=== PATIENT | male | born 1995 | race Two or more races ===

== ENCOUNTER 2017-03-23 23:22 | Inpatient (IN) | payer OTHER ==
[~2017-03-23] VITALS: Ht 172.7 cm; Wt 68.0 kg
[2017-03-23] MEDS ORDERED: iohexol 350MG/ML 100ml bottle IV ONE (23:26)
[2017-03-23] MEDS ORDERED: normal saline 1000ml 1,000 ML IV ONE (23:28)
[2017-03-23] MEDS ORDERED: TETanus/Pertussis (Acell)/Diphther VAC/PF (Tdap-Adult) 0.5ml syringe IMVAC ONE (23:30)
[2017-03-23] MEDS ORDERED: ondansetron/PF 4mg/2ml inj IV ONE ×2 (23:40)
[2017-03-23 23:41] LABS: BASOPHILS % (AUTO) 0.6 % (0-1); EOSINOPHILS % (AUTO) 0.6 % (0-6); HEMATOCRIT 43.3 % (42.0-52.0); HEMOGLOBIN 14.8 g/dl (14.0-17.9); LYMPHOCYTES # (AUTO) 3.3 X10'3 (1.1-4.8); LYMPHOCYTES % (AUTO) 45.2 % (21-51); MEAN CORPUSCULAR HEMOGLOBIN 30.5 PG (27.0-31.0); MEAN CORPUSCULAR HGB CONC 34.2 % (33.0-36.5); MEAN CORPUSCULAR VOLUME 89.1 FL (78-98); MEAN PLATELET VOLUME 8.2 FL (7.4-10.4); MONOCYTES # (AUTO) 0.5 X10'3 (0-0.9); MONOCYTES % (AUTO) 7.4 % (2-12); NEUTROPHILS # (AUTO) 3.4 X10'3 (1.8-7.7); NEUTROPHILS % (AUTO) 46.2 % (42-75); PLATELET COUNT 212 X10'3 (140-440); RED BLOOD COUNT 4.86 X10'6 (4.70-6.10); RED CELL DISTRIBUTION WIDTH 12.5 % (11.5-14.5); WHITE BLOOD COUNT 7.3 X10'3 (4.5-11.0)
[2017-03-23 23:53] LABS: INR 1.1 INR; PARTIAL THROMBOPLASTIN TIME 22 SECONDS (22-32); PROTHROMBIN TIME 11.5 SECONDS (9.0-12.0)
[2017-03-23 23:56] LABS: ALANINE AMINOTRANSFERASE 22 U/L (12-78); ALBUMIN 4.8 G/DL (3.4-5.0); ALBUMIN/GLOBULIN RATIO 1.5 (1.1-1.5); ALKALINE PHOSPHATASE 52 IU/L (46-116); ANION GAP 12 (8-16); ASPARTATE AMINO TRANSFERASE 16 U/L (10-37); BILIRUBIN,TOTAL 0.6 MG/DL (0.1-1.0); BLOOD UREA NITROGEN 16 MG/DL (7-18); BUN/CREATININE RATIO 14.5 (5.4-32.0); CALCIUM 9.1 MG/DL (8.5-10.1); CHLORIDE 103 MMOL/L (99-107); ETHANOL 0.026 GM/DL (0.0-0.010); GLUCOSE 116 MG/DL (70-104); SODIUM 143 MMOL/L (135-145); TOTAL CARBON DIOXIDE 27.9 MMOL/L (24-32); eGFR 80 ML/MIN
[2017-03-24] VITALS (17 sets, daily range): BP systolic 102–138; BP diastolic 59–86
[2017-03-24 00:01] LABS: POTASSIUM 2.9 MMOL/L (3.5-5.1)
[2017-03-24 00:08] LABS: ACETAMINOPHEN < 2.0 UG/ML (10-30)
[2017-03-24 00:11] LABS: URINE AMPHETAMINE SCREEN NEGATIVE (Neg); URINE BARBITUATE SCREEN NEGATIVE (Neg); URINE BENZODIAZEPINES SCREEN NEGATIVE (Neg); URINE CANNABINOID SCREEN NEGATIVE (Neg); URINE COCAINE SCREEN NEGATIVE (Neg); URINE METHADONE SCREEN NEGATIVE (Neg); URINE OPIATE SCREEN NEGATIVE (Neg); URINE PHENCYCLIDINE SCREEN NEGATIVE (Neg)
[2017-03-24] MEDS ORDERED: ceFOXitin 2 GM ADDvantage bag 100 ML IV ONE (00:35)
[2017-03-24] MEDS ORDERED: clindamycin phosphate 150mg/ml inj. ONE (00:39)
[2017-03-24] MEDS ORDERED: gentamicin 40 MG/1 ML inj ONE (00:39)
[2017-03-24] MEDS ORDERED: sevoflurane 250ml liquid IH ONE (01:06)
[2017-03-24] MEDS ORDERED: fentaNYL/PF 50MCG/1 ML 2ML syringe ONE (01:08)
[2017-03-24] MEDS ORDERED: midazolam 2 mg/2 ml injection ONE (01:08)
[2017-03-24] MEDS ORDERED: propofol inj 20 ML IV ONE (01:09)
[2017-03-24] MEDS ORDERED: rocuronium 10mg/ml inj IV ONE (01:09)
[2017-03-24] MEDS ORDERED: ceFOXitin 1000 MG inj ONE ×2 (01:32)
[2017-03-24] MEDS ORDERED: ringers solution, lacted 1,000 ML IV SCH (01:48)
[2017-03-24] MEDS ORDERED: ondansetron/PF 4mg/2ml inj IV PRN (01:50)
[2017-03-24] MEDS ORDERED: proCHLORperazine 10 MG/2 ml inj IV PRN (01:50)
[2017-03-24] MEDS ORDERED: meperidine/PF 50mg/ml syringe IV PRN ×3 (01:50)
[2017-03-24] MEDS ORDERED: morphine 2 MG/ML inj. syringe IV PRN ×2 (01:50)
[2017-03-24] MEDS ORDERED: glycopyrrolate 0.2mg/ml inj ONE (02:04)
[2017-03-24] MEDS ORDERED: neostigmine methylsulfate 1 MG/ML 10ml vial ONE (02:04)
[2017-03-24] MEDS ORDERED: potassium Cl 40MEQ/NS 500ml 500 ML IV PRN ×2 (03:45)
[2017-03-24] MEDS ORDERED: HYDROmorphone 1 mg/ml syringe IV PRN (03:45)
[2017-03-24] MEDS ORDERED: potassium Cl 20 mEq SR tablet PO PRN ×2 (03:45)
[2017-03-24] MEDS: HYDROmorphone inj. 0.5 MG/0.5 ML DISP.SYRIN IV PRN ×4 (04:14→19:01)
[2017-03-24] MEDS ORDERED: potassium Cl 40MEQ/NS 500ml 1,000 ML IV ONE (04:24)
[2017-03-24] MEDS: ceFOXitin 1 GM ADDVANTAGE BAG 1,000 MG in normal saline 100ml IV soln 100 ML IV SCH ×2 (07:46→15:08)
[2017-03-24] MEDS: lactobacillus rhamnosus 10,000 MMU CELLS/CAPSULE PO SCH ×2 (07:46→17:28)
[2017-03-24] MEDS: potassium CL 20mEq in D5-1/2NS 1,000 ML IV SCH ×3 (10:10→21:48)
[2017-03-24] MEDS ORDERED: NO HOME MEDS (11:07)
[2017-03-24] MEDS: ondansetron/PF 4mg/2ml inj IV PRN (12:46)
[2017-03-25] VITALS: BP 116/68
[2017-03-25] MEDS: potassium CL 20mEq in D5-1/2NS 1,000 ML IV SCH ×4 (02:10→20:19)
[2017-03-25] MEDS: HYDROmorphone inj. 0.5 MG/0.5 ML DISP.SYRIN IV PRN ×2 (02:31→23:38)
[2017-03-25 04:49] LABS: BASOPHILS % (AUTO) 0.3 % (0-1); EOSINOPHILS % (AUTO) 0.2 % (0-6); HEMATOCRIT 37.5 % (42.0-52.0); HEMOGLOBIN 13.2 g/dl (14.0-17.9); LYMPHOCYTES # (AUTO) 1.2 X10'3 (1.1-4.8); LYMPHOCYTES % (AUTO) 11.2 % (21-51); MEAN CORPUSCULAR HEMOGLOBIN 30.5 PG (27.0-31.0); MEAN CORPUSCULAR HGB CONC 35.2 % (33.0-36.5); MEAN CORPUSCULAR VOLUME 86.8 FL (78-98); MEAN PLATELET VOLUME 8.3 FL (7.4-10.4); MONOCYTES % (AUTO) 9.7 % (2-12); NEUTROPHILS # (AUTO) 8.3 X10'3 (1.8-7.7); NEUTROPHILS % (AUTO) 78.6 % (42-75); PLATELET COUNT 165 X10'3 (140-440); RED BLOOD COUNT 4.31 X10'6 (4.70-6.10); RED CELL DISTRIBUTION WIDTH 13.1 % (11.5-14.5); WHITE BLOOD COUNT 10.6 X10'3 (4.5-11.0)
[2017-03-25 05:23] LABS: ALBUMIN 3.7 G/DL (3.4-5.0); ANION GAP 8 (8-16); BLOOD UREA NITROGEN 7 MG/DL (7-18); BUN/CREATININE RATIO 8.2 (5.4-32.0); CALCIUM 8.7 MG/DL (8.5-10.1); CHLORIDE 103 MMOL/L (99-107); CREATININE 0.85 MG/DL (0.60-1.10); GLUCOSE 129 MG/DL (70-104); MAGNESIUM 1.8 MG/DL (1.5-2.4); POTASSIUM 3.9 MMOL/L (3.5-5.1); SODIUM 139 MMOL/L (135-145); eGFR > 90 ML/MIN
[2017-03-25 07:51] VITALS: BP 119/73
[2017-03-25] MEDS: lactobacillus rhamnosus 10,000 MMU CELLS/CAPSULE PO SCH ×2 (08:12→18:41)
[2017-03-25 11:00] VITALS: BP 112/71
[2017-03-25] MEDS: ondansetron/PF 4mg/2ml inj IV PRN (16:51)
[2017-03-25 18:00] VITALS: BP 128/86
[2017-03-25] MEDS: metoclopramide 10mg tablet PO SCH (20:18)
[2017-03-25] MEDS: magnesium hydroxide 30ml (MOM) UD suspension PO SCH (20:18)
[2017-03-26] VITALS: BP 117/69
[2017-03-26] MEDS: metoclopramide 10mg tablet PO SCH ×4 (02:00→19:13)
[2017-03-26] MEDS: potassium CL 20mEq in D5-1/2NS 1,000 ML IV SCH ×3 (05:11→22:01)
[2017-03-26 05:30] LABS: BASOPHILS % (AUTO) 0.4 % (0-1); EOSINOPHILS # (AUTO) 0.1 X10'3 (0-0.9); EOSINOPHILS % (AUTO) 0.9 % (0-6); HEMATOCRIT 39.9 % (42.0-52.0); HEMOGLOBIN 14.1 g/dl (14.0-17.9); LYMPHOCYTES # (AUTO) 1.1 X10'3 (1.1-4.8); LYMPHOCYTES % (AUTO) 15.9 % (21-51); MEAN CORPUSCULAR HEMOGLOBIN 30.9 PG (27.0-31.0); MEAN CORPUSCULAR HGB CONC 35.4 % (33.0-36.5); MEAN CORPUSCULAR VOLUME 87.3 FL (78-98); MEAN PLATELET VOLUME 8.4 FL (7.4-10.4); MONOCYTES # (AUTO) 1.2 X10'3 (0-0.9); MONOCYTES % (AUTO) 17.4 % (2-12); NEUTROPHILS # (AUTO) 4.7 X10'3 (1.8-7.7); NEUTROPHILS % (AUTO) 65.4 % (42-75); PLATELET COUNT 169 X10'3 (140-440); RED BLOOD COUNT 4.56 X10'6 (4.70-6.10); RED CELL DISTRIBUTION WIDTH 12.8 % (11.5-14.5); WHITE BLOOD COUNT 7.2 X10'3 (4.5-11.0)
[2017-03-26 05:50] LABS: ALBUMIN 3.6 G/DL (3.4-5.0); ANION GAP 8 (8-16); BLOOD UREA NITROGEN 10 MG/DL (7-18); BUN/CREATININE RATIO 10.5 (5.4-32.0); CALCIUM 9.2 MG/DL (8.5-10.1); CHLORIDE 102 MMOL/L (99-107); CREATININE 0.95 MG/DL (0.60-1.10); GLUCOSE 130 MG/DL (70-104); MAGNESIUM 1.9 MG/DL (1.5-2.4); POTASSIUM 4.3 MMOL/L (3.5-5.1); SODIUM 140 MMOL/L (135-145); eGFR > 90 ML/MIN
[2017-03-26 07:08] VITALS: BP 119/77
[2017-03-26] MEDS: lactobacillus rhamnosus 10,000 MMU CELLS/CAPSULE PO SCH ×2 (08:12→18:18)
[2017-03-26] MEDS: magnesium hydroxide 30ml (MOM) UD suspension PO SCH ×2 (08:12→19:13)
[2017-03-26] MEDS: ondansetron/PF 4mg/2ml inj IV PRN (10:48)
[2017-03-26] MEDS: HYDROmorphone inj. 0.5 MG/0.5 ML DISP.SYRIN IV PRN (10:49)
[2017-03-26 18:00] VITALS: BP 110/64
[2017-03-27] VITALS: BP 128/80
[2017-03-27] MEDS: metoclopramide 10mg tablet PO SCH ×3 (01:38→13:31)
[2017-03-27 05:02] LABS: BASOPHILS % (AUTO) 0.5 % (0-1); EOSINOPHILS # (AUTO) 0.3 X10'3 (0-0.9); EOSINOPHILS % (AUTO) 4.8 % (0-6); HEMATOCRIT 36.2 % (42.0-52.0); HEMOGLOBIN 12.6 g/dl (14.0-17.9); LYMPHOCYTES % (AUTO) 35.5 % (21-51); MEAN CORPUSCULAR HEMOGLOBIN 30.7 PG (27.0-31.0); MEAN CORPUSCULAR HGB CONC 34.9 % (33.0-36.5); MEAN CORPUSCULAR VOLUME 88.1 FL (78-98); MEAN PLATELET VOLUME 8.4 FL (7.4-10.4); MONOCYTES # (AUTO) 0.8 X10'3 (0-0.9); MONOCYTES % (AUTO) 14.6 % (2-12); NEUTROPHILS # (AUTO) 2.5 X10'3 (1.8-7.7); NEUTROPHILS % (AUTO) 44.6 % (42-75); PLATELET COUNT 159 X10'3 (140-440); RED BLOOD COUNT 4.11 X10'6 (4.70-6.10); RED CELL DISTRIBUTION WIDTH 12.9 % (11.5-14.5); WHITE BLOOD COUNT 5.5 X10'3 (4.5-11.0)
[2017-03-27 05:23] LABS: ALBUMIN 3.3 G/DL (3.4-5.0); ANION GAP 7 (8-16); BLOOD UREA NITROGEN 4 MG/DL (7-18); BUN/CREATININE RATIO 4.8 (5.4-32.0); CALCIUM 8.9 MG/DL (8.5-10.1); CHLORIDE 104 MMOL/L (99-107); CREATININE 0.83 MG/DL (0.60-1.10); GLUCOSE 115 MG/DL (70-104); MAGNESIUM 1.8 MG/DL (1.5-2.4); POTASSIUM 3.9 MMOL/L (3.5-5.1); SODIUM 141 MMOL/L (135-145); TOTAL CARBON DIOXIDE 29.8 MMOL/L (24-32); eGFR > 90 ML/MIN
[2017-03-27 07:08] VITALS: BP 119/79
[2017-03-27] MEDS: lactobacillus rhamnosus 10,000 MMU CELLS/CAPSULE PO SCH (07:26)
[2017-03-27] MEDS: magnesium hydroxide 30ml (MOM) UD suspension PO SCH (07:26)
[2017-03-27] MEDS: potassium CL 20mEq in D5-1/2NS 1,000 ML IV SCH (10:24)
[2017-03-27 11:00] VITALS: BP 122/78
[2017-03-27 14:57] VITALS: BP 122/78
== END 2017-03-27 14:05 | disposition home or self-care (01) | DRG 581 ==
LOC: ER 23:23 → EDBD 23:23 → EEVIPCON 23:23 → SUR 3N 03-24 02:10
PROVIDERS: ADMIT Surgery; ATTEND Surgery
PROC: BW251ZZ Computerized Tomography (CT Scan) of Chest, Abdomen and Pelvis using Low Osmolar Contrast (ICD-10-PCS; 2017-03-23)
PROC: 0WJP0ZZ Inspection of Gastrointestinal Tract, Open Approach (ICD-10-PCS; principal; 2017-03-24 01:06)
DX: S31.139A Puncture wound of abdominal wall without foreign body, unspecified quadrant without penetration into peritoneal cavity, initial encounter (principal); W34.00XA Accidental discharge from unspecified firearms or gun, initial encounter; Y93.89 Activity, other specified; Y92.89 Other specified places as the place of occurrence of the external cause; Y99.8 Other external cause status
CPT/HCPCS: 96361; 96374; 96375; 99291; Z7506; 36415; 71045; 71260; 74177; 80048; 80053; 80305; 80320; 80329; 83735; 85025; 85610; 85730; 86885; 86900; 86901; 87070; 87075; 90471; 90715; A4315; A6212; A6213; A6257; A6449; A7000; J0694; J1170; J1580; J2250; J2405; J2704; J2710; J3010; J3480; J3490; J7030; J7120; J8597; Q9967